=== PATIENT | male | born 1990 | race Caucasian/White ===

== ENCOUNTER 2016-07-27 04:46 | Emergency (ER) | payer SELFPAY ==
[~2016-07-27 04:46] MED LIST: ERYTHROMYCIN B500 MG PO; PHENERGAN VC W120 M1 PO
[2016-12-12] MEDS ORDERED: VOLTAREN75 MG PO (22:14)
[2016-12-12] MEDS ORDERED: TRAMADOL HCL50 M1 PO (22:14)
== END 2016-07-27 05:14 | disposition home or self-care (01) ==
LOC: CED 04:46
DX: K08.89 Other specified disorders of teeth and supporting structures (principal); F17.210 Nicotine dependence, cigarettes, uncomplicated
CPT/HCPCS: 96372; 99283; J1885